=== PATIENT | male | born 1990 ===

== ENCOUNTER 2017-01-15 18:49 | Emergency (ER) | payer SELFPAY ==
[~2017-01-15 18:49] MED LIST: ISOVUE-370 76%-LOCM 1 ML ONE
[2017-01-15] MEDS ORDERED: Adacel (T-DAP) 0.5 ML VIAL ONE (18:56)
[2017-01-15 19:28] LABS: #Lymphocytes 1.1 thou/uL (1.20-3.40); #Monocytes 0.5 thou/uL (0.11-0.59); #Neutrophils 9.1 thou/uL (1.40-6.50); %Basophils 0.1 % (0.0-1.0); %Eosinophils 0.4 % (0.0-10.0); %Monocytes 4.9 % (0.0-10.0); Mean Platelet Volume 8.5 fL (7.4-10.4); Red Blood Cell (RBC) Count 4.94 mill/uL (4.70-6.10); White Blood Cell (WBC) Count 10.8 thou/uL (4.8-10.8)
[2017-01-15 19:36] LABS: PTT 25.9 SEC (22.9-36.1); Prothrombin Time 14.1 SEC (12.0-14.7)
[2017-01-15] MEDS ORDERED: Lidocaine 1% (PF) 30 ML VIAL ONE (19:36)
[2017-01-15 19:52] LABS: ALT (SGPT) 29 U/L (8-55); AST (SGOT) 31 U/L (5-34); Alkaline Phosphatase 70 U/L (40-150); Anion Gap 14 mmol/L (10-20); BUN (Urea Nitrogen) 17 mg/dL (8.9-20.6); Bilirubin, Total 0.7 mg/dL (0.2-1.2); Calc. Creatinine Clearance 0 mL/min (70-130); Calcium 9.3 mg/dL (7.8-10.44); Carbon Dioxide 23 mmol/L (22-29); Chloride 104 mmol/L (98-107); Estimated GFR-MDRD 77; Globulin 2.6 g/dL (2.4-3.5); Lipase 27 U/L (8-78)
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
== END 2017-01-15 21:09 | disposition home or self-care (01) ==
LOC: ERS 18:49
DX: S01.81XA Laceration without foreign body of other part of head, initial encounter (principal); S20.319A Abrasion of unspecified front wall of thorax, initial encounter; S80.812A Abrasion, left lower leg, initial encounter; S80.811A Abrasion, right lower leg, initial encounter; S40.812A Abrasion of left upper arm, initial encounter; S40.811A Abrasion of right upper arm, initial encounter; I10 Essential (primary) hypertension; L40.9 Psoriasis, unspecified; Z79.899 Other long term (current) drug therapy; V87.8XXA Person injured in other specified noncollision transport accidents involving motor vehicle (traffic), initial encounter
CPT/HCPCS: 12052; 36415; 70450; 71260; 72125; 74177; 80053; 83690; 85025; 85610; 85730; 86850; 86900; 86901; 90471; 90715; J2001